=== PATIENT | male | born 1980 | race Caucasian/White ===

== ENCOUNTER 2024-05-08 21:12 | Emergency (ER) | payer BC, SELFPAY ==
[2024-05-08 21:15] VITALS: BP 135/83; PULSE 74; RESP 18; TEMP 36.9; O2SAT 98; BMI 25.8
--- NOTE | 2024-05-08 21:30 | CRLHL7_ITS ---
For Patients: As a result of the Century Cures Act, medical imaging exams and procedure reports are released immediately into your electronic medical record. You may view this report before your referring provider. If you have questions, please contact your health care provider. Indication: Left distal wrist pain. Technique: Left wrist 3 views. Comparison: None. Findings: Possible mildly displaced fracture of the dorsal distal radius. Irregular lucency within the triquetrum. Alignment is normal. The joint spaces are preserved. No aggressive osseous lesion. Follow-up tissue swelling about the wrist. Impression: 1. Possible mildly displaced fracture of the dorsal distal radius. 2. Irregular lucency within the triquetrum could represent a nondisplaced fracture. Recommend correlation with sites for focal tenderness. Consider CT for further evaluation. Dictated by Kign Plaza MD @ 05/08/2024 10:18:05 PM (Electronically Signed)
--- NOTE | 2024-05-08 21:30 | CRLHL7_ITS ---
For Patients: As a result of the Century Cures Act, medical imaging exams and procedure reports are released immediately into your electronic medical record. You may view this report before your referring provider. If you have questions, please contact your health care provider. Indication: Fall, left elbow pain. Technique: Left elbow 3 views. Comparison: None. Findings: Bones: Alignment is normal. No fractures or bone lesions. Joint spaces: Unremarkable. No elbow joint effusion. Soft tissues: Dystrophic calcifications about the olecranon. Impression: No evidence of an acute bony abnormality. Dictated by King Plaza MD @ 05/08/2024 10:12:09 PM (Electronically Signed)
--- NOTE | 2024-05-08 21:37 | ED.GENADULT ---
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 He reports that he got pinned between lost the tractor and the bull in the [place]. he turned into the tractor to avoid the bowl, causing a scratch to his elbow. The bulll continue to charge, 40 mg patient quickly dropped to the ground and duct underneath the tractor to get away from the bowl and now has pain in the left wrist. Did not hit his head, no loss of consciousness. Does not take any anticoagulants. Pain at the distal radius of the left arm and also at the olecranon area of the left elbow. Bleeding noted at the left elbow. No other areas of injury. No shortness of breath, chest pain. No fevers or recent illness. Does not recall when his last tetanus shot was. Did not try taking any medication to help with his pain. He states that his past medical history is benign, no major long-term health problems. No prescription medications. No allergy. ROS notable for the musculoskeletal symptoms as above only. Otherwise denies times 12 systems. Related Data Home Medications ?Medication ?Instructions ?Recorded ?Confirmed No Known Home Medications 05/28/22 05/28/22 Allergies Allergy/AdvReac Type Severity Reaction Status Date / Time No Known Drug Allergies Allergy Verified 05/28/22 18:42 [facility] Medical History Pain ?R52 - Pain, unspecified (ICD-10) Social History Smoking Status: Never smoker Exam Const: Vital Signs, click to edit/add: Vital Signs - 24 hr 05/08/24 21:15 Temperature 98.5 F Pulse Rate [Right Pulse Oximeter] 74 Respiratory Rate 18 Blood Pressure [Ri ght Upper Arm] 135/83 Pulse Oximetry 98 Oxygen Delivery Me thod Room Air Documenting provider has reviewed patient's vital signs: yes Common normals: no apparent distress and alert General appearance: cooperative and comfortable HENMT: Common normals: normocephalic and oropharynx normal Head and scalp: normocephalic Face and sinus: normal facial exam Mouth: oral and palatal mucosa normal Eye: Common normals: conjunctivae normal General eye: normal appearance of both eyes Conjunctiva: conjunctiva(e) normal Neck & C-Spine: Common normals: full ROM General: normal visual inspection Chest: Common normals: inspection of chest normal Resp: Common normals: normal respiratory effort, no use of accessory muscles and clear to auscultation bilaterally Effort & inspection: able to speak in complete sentences Auscultation: clear to auscultation bilaterally Cardio: Common normals: regular rate, regular rhythm, S1 normal heart sound, S2 normal heart sound and no murmurs Rate: regular rate Rhythm: regular rhythm Heart sounds: S1 normal and S2 normal Back & Pelvis: Common normals: thoracic and lumbar spine normal to inspection Extremity: Other: Right shoulder with known range of motion. Left elbow with normal flexion extension, supination and pronation but those movements do cause increased wrist pain. There is a 3 cm dermal and epidermal thickness laceration over the olecranon. Mild bleeding noted. Does not gape. No visible bone, tendon or deep structures. Distal wrist swelling and mild deformity, distal radius. Distal component seems to be mildly displaced dorsally. Normal radial pulses. Pain with movement but he can move the wrist. Normal range of motion of all the fingers. Normal sensation and capillary refill in all fingers. Normal movement of thumb, opposition extension flexion. Neuro: Sensorium/orientation: alert Speech: speech normal Motor exam: no movement abnormalities noted Psych: Common normals: speech normal Attitude: engaged Activity/motor behavior: appropriate eye contact Speech: normal speech Insight: insight good Judgement: judgment good Course Course ED Course: 44-year-old male with left wrist injury and left elbow abrasion following encounter with bowl. No other signs of trauma. Differential diagnosis fracture, sprain, abrasion, neurovascular injury. Will obtain x-rays of both the elbow and the wrist. He declined pain medication. Will need attention on the wound after x-ray. Reevaluation(s) Reevaluation #1: Inform patient of wrist fracture. Informed patient of my concern for possible foreign body at the left elbow. Procedure: Wound exploration and Steri-Strips application. Wound was examined and no obvious gross external foreign body seen, cut is evaluated. Areas injected with 3 mL of 1% lidocaine with epinephrine with good blanching. Patient does not report good anesthesia but he tolerated the exam fairly well. Cleanse x3 with Betadine. Extensive palpation and exploration of the wound externally is performed. I really do not feel any firm foreign body that fits in the area of imaging. Repeated the exam 3 times with no abnormality felt. Please note that the x-ray was performed prior to the tech cleansing the wound. She certainly could have removed a small piece of debris. I did check the x-ray again and reconfirmed my exam. No palpable abnormality or noted. I gently the lacerations to look for foreign body and none is seen. Palpated along the laceration extensively and still do not feel any signs of the foreign body. Counseled patient on this. He does not notice 1 either. Areas then cleansed again he with the soap and tap water, wiped dry. Mastisol and Steri-Strips applied with good wound reapproximation and hemostasis. Counseled on wound care. Discussed wrist fracture with patient. He is a very poor candidate for a not removable splint. He works in concrete and also farms. He expresses that he is not likely able to keep this clean or dry. He is likely to be exposed to fecal material from the livestock and also chemical irritants. The fracture is not displaced. I fitted him into a wrist splint and actually he has good anatomic reapproximation with this. I think that this really would be sufficient and fit his needs better. We discussed the risks and benefits and he is in agreement. Discussed the distal radius fracture but also the potential triquetral fracture. Patient will need Ortho follow-up. He will call for an appointment. Discussed Tylenol and ibuprofen for pain control. Limited supply of hydrocodone will be given for more severe pain. Okay to use melatonin and or Benadryl as needed as sleep aid. Will update tetanus prior to discharge. Alarm symptoms were reviewed that would warrant ED presentation. He verbalizes understanding and agreement. He again declines pain medication prior to discharge. Vital Signs Vital signs: Initial Vital Signs Temperature 98.5 F 05/08/24 21:15 Temperature Source Temporal Artery Scan 05/08/24 21:15 Pulse Rate 74 05/08/24 21:15 Pulse Rhythm Regular 05/08/24 21:15 Respiratory Rate 18 05/08/24 21:15 Blood Pressure 135/83 05/08/24 21:15 Blood Pressure Mean 100 05/08/24 21:15 Blood Pressure Position Sitting 05/08/24 21:15 Pulse Oximetry 98 05/08/24 21:15 Oxygen Delivery Method Room Air 05/08/24 21:15 Vital Signs Temperature 98.5 F 05/08/24 21:15 Pulse Rate 74 05/08/24 21:15 Respiratory Rate 18 05/08/24 21:15 Blood Pressure 135/83 05/08/24 21:15 Pulse Oximetry 98 05/08/24 21:15 Oxygen Delivery Method Room Air 05/08/24 21:15 Temperature 98.5 F 05/08/24 21:15 Pulse Rate 74 05/08/24 21:15 Respiratory Rate 18 05/08/24 21:15 Blood Pressure 135/83 05/08/24 21:15 Pulse Oximetry 98 05/08/24 21:15 Oxygen Delivery Method Room Air 05/08/24 21:15 Medical Decision Making Imaging Data Left wrist x-ray: Attestation: I have reviewed the pertinent imaging results. My impression: Distal radius fracture. Nondisplaced, nonangulated. Radiologist's impression: Impression: 1. Possible mildly displaced fracture of the dorsal distal radius. 2. Irregular lucency within the triquetrum could represent a nondisplaced fracture. Recommend correlation with sites for focal tenderness. Consider CT for further evaluation. Left elbow x-ray: Attestation: I have reviewed the pertinent imaging results. My impression: Questionable foreign body, no elbow fracture Radiologist's impression: Soft tissues: Dystrophic calcifications about the olecranon. Impression: No evidence of an acute bony abnormality. Discharge Plan Discharge Clinical Impression: Fracture of left wrist, Laceration of elbow, left Patient Disposition: Home w/ Parent or Adult Condition: Stable Instructions: Wrist Fracture in Adults (ED), Steristrips (ED) Additional Instructions: As we discussed, there is a fracture at your wrist. This is nondisplaced and nonangulated meaning that the pieces line up very well. This should heal without complication. There also looks to be a small fracture of the smaller wrist bones which is a little more concerning. It can be very difficult to see these on x-ray. What I recommend we do is heavy follow-up with orthopedics in a couple of weeks to repeat the x-ray and see how things are healing. Sometimes this can affect blood flow to though small bones. We would be more able to tell at that time. We elected to put you in a removable splint because of the type of work you do. I think he would have significant difficulty keeping the splint dry and clean if you were in a typical cast type splint. But you still need to wear this removable splint with all activities. There is no tight gripping with the hand, no lifting over 10 lb for the next 4 weeks. It is okay to take the wrist splint off to sleep, shower and to clean it. For pain, I recommend Tylenol 1000 mg every 6 hours as needed and or ibuprofen 600 mg every 6 hours as needed. I will give you a very small supply of hydrocodone to use if the pain is severe at bedtime. I am hoping that you do not need any of this medication but I would like for you to have an on hand just in case. Remember that you can also use 25-50 mg of Benadryl and or 10 mg of melatonin to help you sleep as well. Your tetanus shot was updated today. The Steri-Strips that were applied to your elbow will stay on for about 5-7 days. This will allow things to hold together well the wound closes. I regionally thought there could be a small piece of gravel or other small foreign body near the wound. The radiologist really thinks that this is a bone island. With exploring the wound, I did not feel any obvious foreign body. Our tech may also have scrubbed away when she cleaned the wound. Nonetheless, if you start to have increased redness, swelling or drainage, this could be a sign of infection and should be re-evaluated. Please call [phone] to schedule an appointment with the orthopedic provider for 2 weeks from now. Activity Level: Light activity Discharge Diet: Regular Prescriptions: No Action No Known Home Medications Follow Up/Referrals: Jono Guerrero MD [Staff Physician] - 2 Weeks (Recheck left wrist fracture) Mathew Mendoza MD [Primary Care Provider] - Stand Alone [facility]: [facility] Info Instructions
[2024-05-08] MEDS: TETANUS-DIPHTHERIA TOXOIDS/PF 0.5 ML SYRINGE IM (22:58)
== END 2024-05-08 23:11 | disposition home or self-care (01) ==
PROVIDERS: Emergency Provider Family Medicine; PCP Family Medicine
DX: S52.502A Unspecified fracture of the lower end of left radius, initial encounter for closed fracture (principal); W26.9XXA Contact with unspecified sharp object(s), initial encounter; Y92.79 Other farm location as the place of occurrence of the external cause
CPT/HCPCS: 12001; 73080; 73110; 90471; 90714; 99283

== ENCOUNTER 2024-05-11 13:48 | Outpatient (CLI) | payer BC, SELFPAY ==
--- NOTE | 2024-05-11 14:00 | CRLHL7_ITS ---
For Patients: As a result of the Century Cures Act, medical imaging exams and procedure reports are released immediately into your electronic medical record. You may view this report before your referring provider. If you have questions, please contact your health care provider. INDICATION: Injury. Characterize known fractures. COMPARISON: Plain films 08 May 2024. TECHNIQUE: Multidetector imaging with axial coronal and sagittal formats. FINDINGS: Intra-articular fractures through the dorsal lip of the radius undercutting Adrianna`s tubercle. No significant displacement. 1 mm intra-articular diastasis. Anatomic radiocarpal alignment. Oblique fracture through the triquetrum with some comminution of the proximal and distal intra-articular extension and up to 2 mm diastasis through the body of the ossicle. Intact pisiform. Very subtle nondisplaced intra-articular fracture through the dorsal distal margin of the lunate near its articulation with the capitate. Intact capitate. Intact scaphoid. No widening of the scapholunate interval. IMPRESSION: 1. Slightly complex intra-articular fracture of the triquetrum and minimal comminution. 2. Nondisplaced fracture of the dorsal lip of the radius through the base of Adrianna`s tubercle. 3. Tiny nondisplaced fracture distal lunate. Please note that all CT scans at this facility use dose modulation, iterative reconstruction, and/or weight-based dosing when appropriate to reduce radiation dose to as low as reasonably achievable. Dictated by Tim Garcia MD @ 05/11/2024 4:03:00 PM (Electronically Signed)
== END 2024-05-11 13:49 | disposition home or self-care (01) ==
PROVIDERS: PCP Family Medicine; Visit Provider Orthopaedic Surgery
DX: S62.102A Fracture of unspecified carpal bone, left wrist, initial encounter for closed fracture (principal); S62.112A Displaced fracture of triquetrum [cuneiform] bone, left wrist, initial encounter for closed fracture; S52.92XA Unspecified fracture of left forearm, initial encounter for closed fracture; S62.122A Displaced fracture of lunate [semilunar], left wrist, initial encounter for closed fracture
CPT/HCPCS: 73200